=== PATIENT | male | born 1955 | race Caucasian/White ===

== ENCOUNTER 2019-04-18 10:41 | Day surgery (SDC) | payer MEDICARE, BC ==
[~2019-04-18 10:41] MED LIST: Lactated Ringers 1,000 ML IV SCH
--- NOTE | 2019-04-18 11:28 | PCM.PREANE ---
Preanesthetic Assessment - Anesthesia/Transfusion/Family Hx Anesthesia History: Prior Anesthesia Without Reaction Family History of Anesthesia Reaction: No Transfusion History: No Prior Transfusion(s) - Review of Systems General: No Symptoms Pulmonary: No Symptoms Cardiovascular: No Symptoms Gastrointestinal: No Symptoms Neurological: No Symptoms Other: Reports: None - Physical Assessment Vital Signs: Last Vital Signs Temp 97.2 F 04/18/19 10:57 Pulse 74 04/18/19 10:57 Resp 14 04/18/19 10:57 BP 124/77 04/18/19 10:57 Pulse Ox 98 04/18/19 10:57 Height: 5 ft 10 in Weight: 91.626 kg ASA Class: 3 Mental Status: Alert & Oriented x3 Airway Class: Mallampati = 2 Dentition: Reports: Normal Dentition ROM/Head Extension: Full Lungs: Clear to Auscultation, Normal Respiratory Effort Cardiovascular: Regular Rate, Regular Rhythm - Allergies Allergies/Adverse Reactions: Allergies Allergy/AdvReac Type Severity Reaction Status Date / Time doxycycline Allergy Rash Verified 04/14/19 08:28 Penicillins Allergy Rash Verified 04/14/19 08:28 - Blood Blood Available: No - Anesthesia Plan Pre-Op Medication Ordered: None - Acknowledgements Anesthesia Type Planned: General Anesthesia Pt an Appropriate Candidate for the Planned Anesthesia: Yes Alternatives and Risks of Anesthesia Discussed w Pt/Guardian: Yes Pt/Guardian Understands and Agrees with Anesthesia Plan: Yes Additional Comments: PMH: chest pains 8 years ago, followed by abnormal stress test, treated medically, has never had cardiac cath. No recent sx PLAN: tiva PreAnesthesia Questionnaire HEENT History: Reports: Other (See Below) Other HEENT History: wears glasses Cardiovascular History: Reports: High Cholesterol, Other (See Below) Other Cardiovascular History: on metoprolol but denies having elevated BP Respiratory History: Reports: None Other Gastrointestinal History: occasional heartburn Genitourinary History: Reports: None Musculoskeletal History: Reports: Arthritis Neurological History: Reports: None Psychiatric History: Reports: None Endocrine/Metabolic History: Reports: Hypothyroidism Hematologic History: Reports: None Immunologic History: Reports: None Oncologic (Cancer) History: Reports: None Dermatologic History: Reports: None - Past Surgical History Head Surgeries/Procedures: Reports: None HEENT Surgical History: Reports: Cataract Surgery Cardiovascular Surgical History: Reports: None Respiratory Surgical History: Reports: None GI Surgical History: Reports: Colonoscopy, EGD Male Surgical History: Reports: None Endocrine Surgical History: Reports: None Neurological Surgical History: Reports: None Musculoskeletal Surgical History: Reports: None Oncologic Surgical History: Reports: None Dermatological Surgical History: Reports: Skin Biopsy - SUBSTANCE USE Smoking Status *Q: Never Smoker Recreational Drug Use History: No - HOME MEDS Home Medications: Home Meds Aspirin 81 mg CHEW DAILY 04/14/19 [History] Famotidine [Pepcid] 1 tab PO ASDIRECTED PRN 04/14/19 [History] Fish Oil/[place]-3 Fatty Acids [Fish Oil 1,000 MG] 1,000 mg PO DAILY 04/14/19 [ History] Levothyroxine Sodium [Levoxyl] 50 mcg PO DAILY 04/14/19 [History] Metoprolol Succinate 25 mg PO DAILY 04/14/19 [History] atorvaSTATin Calcium [Atorvastatin Calcium] 10 mg PO DAILY 04/14/19 [History] - CURRENT (IN HOUSE) MEDS Current Meds: Current Medications Lactated Ringer's (Ringers, Lactated) 1,000 mls @ 125 mls/hr IV ASDIRECTED DENNISE Last Admin: 04/18/19 11:01 Dose: 125 mls/hr
[2019-04-18] MEDS ORDERED: Ondansetron 4 MG/2 ML SDV ONE (11:43)
[2019-04-18] MEDS ORDERED: Propofol 200 MG/20 ML SDV ONE (11:43)
--- NOTE | 2019-04-18 13:58 | PCM.OPNOTE ---
- General Post-Op/Procedure Note Date of Surgery/Procedure: 04/18/19 Operative Procedure(s): Colonoscopy with cold ascending colon polypectomy Pre Op Diagnosis: Rectal bleeding Post-Op Diagnosis: Ascending colon polyp Anesthesia Technique: MAC (ASA III) Primary Surgeon: Juni Sosa Condition: Good Free Text/Narrative:: DICTATION [id number] CPT CODE [id number]
[2019-04-18] MEDS ORDERED: Lactated Ringers 1,000 ML IV SCH (14:00)
--- NOTE | 2019-04-18 14:06 | PCM.POSTAN ---
POST ANESTHESIA ASSESSMENT - MENTAL STATUS Mental Status: Alert - VITAL SIGNS Vital Signs: Last Vital Signs Temp 36.2 C 04/18/19 10:57 Pulse 62 04/18/19 14:01 Resp 22 H 04/18/19 14:01 BP 106/67 04/18/19 14:01 Pulse Ox 100 04/18/19 14:01 - RESPIRATORY Respiratory Status: Respiratory Rate WNL - CARDIOVASCULAR CV Status: Pulse Rate WNL - GASTROINTESTINAL GI Status: No Symptoms - POST OP HYDRATION Hydration Status: Adequate & Stable
--- NOTE | 2019-04-18 14:28 | PCM48HPAN ---
Post Anesthesia Note - EVALUATION WITHIN 48HRS OF ANESTHETIC Vital Signs in Normal Range: Yes Patient Participated in Evaluation: Yes Respiratory Function Stable: Yes Airway Patent: Yes Cardiovascular Function Stable: Yes Hydration Status Stable: Yes Pain Control Satisfactory: Yes Nausea and Vomiting Control Satisfactory: Yes Mental Status Recovered: Yes Vital Signs: Last Vital Signs Temp 36.2 C 04/18/19 10:57 Pulse 63 04/18/19 14:15 Resp 14 04/18/19 14:15 BP 115/70 04/18/19 14:15 Pulse Ox 98 04/18/19 14:15
--- NOTE | 2019-04-18 16:18 | OR ---
SURGEON: Juni Sosa M.D. DATE OF PROCEDURE: 04/18/2019 OPERATION PERFORMED: Colonoscopy with cold ascending colon polypectomy. PRIMARY SURGEON: Juni Sosa M.D. ANESTHESIA: MAC. ASA CLASSIFICATION: 3. PREOPERATIVE DIAGNOSIS: Rectal bleeding. POSTOPERATIVE DIAGNOSIS: Ascending colon polyp. DESCRIPTION OF PROCEDURE: The patient was taken to the endoscopy room and positioned on the endoscopy table in the left lateral decubitus position. Time-out was called for appropriate identification of the patient and procedure. Monitored anesthesia care was provided. The colonoscope was inserted into the rectum and advanced with minimal difficulty to the cecum where the colonoscope was retroflexed to visualize the ascending colon from below. The colonoscope was then straightened and slowly withdrawn. One polyp was encountered in the ascending colon and removed with multiple bites of the cold biopsy forceps. There was no significant bleeding. The remainder of the ascending colon, hepatic flexure, transverse colon, splenic flexure, descending colon, sigmoid colon, and rectum showed no tumors, polyps, diverticula, or angiodysplastic changes. The colonoscope was withdrawn to the rectum and retroflexed to visualize the anal orifice from above. Again, no tumors or polyps were seen. He does have some minor hemorrhoidal changes. No acute hemorrhoids were noted. The colonoscope was then straightened, the rectum aspirated, and the colonoscope removed. The patient tolerated the procedure well and was taken to recovery room in stable condition. JIM GILL /[id number]
== END 2019-04-18 14:36 | disposition home or self-care (01) ==
LOC: MW.SDS 10:41
PROVIDERS: ATTEND Surgery
DX: K62.5 Hemorrhage of anus and rectum (principal); K63.5 Polyp of colon; K64.8 Other hemorrhoids; M19.90 Unspecified osteoarthritis, unspecified site; I25.10 Atherosclerotic heart disease of native coronary artery without angina pectoris; Z88.1 Allergy status to other antibiotic agents; Z88.0 Allergy status to penicillin; Z79.82 Long term (current) use of aspirin; Z79.899 Other long term (current) drug therapy
CPT/HCPCS: 45380; 88305; J2001; J2405; J2704; J7120